=== PATIENT | female | born 1990 | race African-American/Black ===

== ENCOUNTER 2022-05-21 10:04 | Emergency (ER) | payer SELFPAY ==
[~2022-05-21] VITALS: Ht 149.9 cm; Wt 80.0 kg
[2022-05-21] MEDS ORDERED: ALBU18HF2 IH (15:06)
[2022-05-21] MEDS ORDERED: DEXTL PO (15:06)
[2022-05-21] MEDS ORDERED: QUET300T5 PO (15:06)
[2022-05-21] MEDS ORDERED: ACETAMINOPHEN 325MG TABLET PO NR (15:21)
[2022-05-21] MEDS ORDERED: ACET-2708 PO (15:23)
[2022-05-21] MEDS ORDERED: LORAZEPAM 0.5MG TABLET PO NR (15:30)
[2022-05-21 15:59] VITALS: BP 123/89
== END 2022-05-21 16:04 | disposition home or self-care (01) ==
LOC: ER 10:04
DX: J20.9 Acute bronchitis, unspecified (principal); Z20.822 Contact with and (suspected) exposure to COVID-19
CPT/HCPCS: 71045; 81025; 87426; 99284; C9803

== ENCOUNTER 2022-07-03 15:46 | Emergency (ER) | payer MEDICAID ==
[~2022-07-03] VITALS: Ht 160 cm; Wt 81.0 kg
[~2022-07-03 15:46] MED LIST: ACET-2708 PO; ALBU18HF2 IH; DEXTL PO; QUET300T5 PO
[2022-07-03 16:30] VITALS: BP 112/68
== END 2022-07-03 21:49 | disposition left against medical advice (07) ==
LOC: ER 15:46
DX: Z53.21 Procedure and treatment not carried out due to patient leaving prior to being seen by health care provider (principal); F41.9 Anxiety disorder, unspecified; G43.909 Migraine, unspecified, not intractable, without status migrainosus

== ENCOUNTER 2022-07-28 08:44 | Emergency (ER) | payer MEDICAID ==
[~2022-07-28] VITALS: Ht 149.9 cm; Wt 77.0 kg
[2022-07-28 08:50] VITALS: BP 135/92
[2022-07-28] MEDS ORDERED: QUETIAPINE FUMARATE 50MG TABLET PO SCH (09:15)
[2022-07-28] MEDS ORDERED: QUET300T5 MT (09:42)
== END 2022-07-28 10:13 | disposition home or self-care (01) ==
LOC: ER 08:45
DX: F41.9 Anxiety disorder, unspecified (principal); G43.909 Migraine, unspecified, not intractable, without status migrainosus; R11.0 Nausea
CPT/HCPCS: 99283; Z7610

== ENCOUNTER 2022-09-11 10:37 | Emergency (ER) | payer MEDICAID ==
[~2022-09-11] VITALS: Ht 162.6 cm; Wt 81.0 kg
[~2022-09-11 10:37] MED LIST changes: +QUET300T5 MT
[2022-09-11 10:42] VITALS: BP 118/84
[2022-09-11] MEDS ORDERED: ACETAMINOPHEN 325MG TABLET PO STA (11:55)
[2022-09-11] MEDS ORDERED: SODIUM CHLORIDE 0.9% 1,000 ML IV ONE (12:00)
[2022-09-11] MEDS ORDERED: METOCLOPRAMIDE HCL 10MG/2ML VIAL IV ONE (12:00)
[2022-09-11] MEDS ORDERED: MAGNESIUM/ALUMINUM HYDROXIDE/SIMETHICONE 30ML UDC PO ONE (12:15)
[2022-09-11] MEDS ORDERED: METOCLOPRAMIDE HCL 5MG TABLET PO ONE (12:15)
[2022-09-11] MEDS ORDERED: HYDROXYZINE 25MG TABLET PO ONE (14:15)
== END 2022-09-11 14:51 | disposition home or self-care (01) ==
LOC: ER 11:10
DX: R11.2 Nausea with vomiting, unspecified (principal); Z86.59 Personal history of other mental and behavioral disorders
CPT/HCPCS: 99284; J7030; J8597

== ENCOUNTER 2022-10-03 11:43 | Emergency (ER) | payer MEDICAID ==
[~2022-10-03] VITALS: Ht 162.6 cm; Wt 95.0 kg
[2022-10-03 12:05] VITALS: BP 129/68
[2022-10-03] MEDS ORDERED: HYDR10TA34 MT (13:28)
[2022-10-03] MEDS ORDERED: METO-293 PO (13:28)
== END 2022-10-03 13:36 | disposition home or self-care (01) ==
LOC: ER 11:43
DX: Z76.0 Encounter for issue of repeat prescription (principal); Z86.59 Personal history of other mental and behavioral disorders
CPT/HCPCS: 99283